=== PATIENT | female | born 1990 | race African-American/Black ===

== ENCOUNTER 2024-11-11 19:52 | Emergency (ER) | payer SELFPAY ==
[~2024-11-11] VITALS: Ht 172.7 cm; Wt 118.0 kg
[2024-11-11 20:07] VITALS: O2SAT 97
[2024-11-11 20:30] VITALS: BP 106/63; PULSE 98; RESP 18; TEMP 36.9; O2SAT 99
[2024-11-11 23:22] LABS: *AMPHETAMINES SCREEN URINE NEGATIVE (NEGATIVE); *BARBITURATES SCREEN URINE NEGATIVE (NEGATIVE); *BENZODIAZEPINES SCREEN URINE NEGATIVE (NEGATIVE); *COCAINE SCREEN URINE NEGATIVE (NEGATIVE); CANNABINOID URINE SCREEN NEGATIVE (NEGATIVE); ECSTASY MDMA SCREEN URINE NEGATIVE (NEGATIVE); METHADONE URINE SCREEN NEGATIVE (NEGATIVE); OPIATES URINE SCREEN PRESUMPTIVE POSITIVE (NEGATIVE); PHENCYCLIDINE URINE SCREEN NEGATIVE (NEGATIVE)
[2024-11-11] MEDS ORDERED: NALO4SPR BOTHNSTRLS (23:28)
== END 2024-11-12 00:19 | disposition home or self-care (01) ==
LOC: ER 19:52
DX: T40.411A Poisoning by fentanyl or fentanyl analogs, accidental (unintentional), initial encounter (principal); Z79.899 Other long term (current) drug therapy; Y92.89 Other specified places as the place of occurrence of the external cause
CPT/HCPCS: 80305; 81025; 93005; 99284; Z7610 ×2; A4606